=== PATIENT | female | born 1995 | race African-American/Black ===

== ENCOUNTER 2024-01-13 16:53 | Emergency (ER) | payer OTHER ==
[~2024-01-13] VITALS: Ht 157.5 cm; Wt 57.4 kg
[2024-01-13] MEDS ORDERED: IBUP-1022 PO (23:41)
[2024-01-14] MEDS: IBUPROFEN 600MG TAB PO ONE (00:08)
[2024-01-14 00:22] VITALS: BP 121/72; TEMP 97.5; O2SAT 99
== END 2024-01-14 00:23 | disposition home or self-care (01) ==
LOC: M ED 16:53
DX: S93.401A Sprain of unspecified ligament of right ankle, initial encounter (principal); Y92.9 Unspecified place or not applicable; Y93.9 Activity, unspecified; Y99.0 Civilian activity done for income or pay; Z79.1 Long term (current) use of non-steroidal anti-inflammatories (NSAID)